=== PATIENT | female | born 1985 | race Caucasian/White ===

== ENCOUNTER 2021-07-21 18:17 | Emergency (ER) | payer OTHER ==
[~2021-07-21] VITALS: Ht 152.4 cm; Wt 68.0 kg
[~2021-07-21 18:17] MED LIST: CIPRO500 MG PO; INTESTINEX680 MG PO; KETO10TA2 PO; TAMS0.4C PO; ZANTAC150 MG PO
== END 2021-07-21 21:11 | disposition home or self-care (01) ==
LOC: ER 18:17
DX: M54.5 Low back pain (principal); Z03.818 Encounter for observation for suspected exposure to other biological agents ruled out

== ENCOUNTER 2022-11-14 12:09 | Emergency (ER) | payer OTHER ==
[~2022-11-14] VITALS: Ht 152.4 cm; Wt 68.0 kg
== END 2022-11-14 18:47 | disposition home or self-care (01) ==
LOC: ER 12:09
DX: K52.89 Other specified noninfective gastroenteritis and colitis (principal)

== ENCOUNTER 2025-03-19 13:16 | Emergency (ER) | payer OTHER ==
[~2025-03-19] VITALS: Ht 152.4 cm; Wt 63.5 kg
[2025-03-19] MEDS ORDERED: KETOROLAC TROMETHAMINE 60 MG VIAL IM ONE ×2 (16:15→16:52)
[2025-03-19] MEDS ORDERED: ORPHENADRINE CITRATE 30 MG/ML AMPUL IM ONE (16:15)
[2025-03-19] MEDS ORDERED: ORPHENADRINE CITRATE 30 MG/ML AMPUL ONE (16:52)
== END 2025-03-19 19:07 | disposition home or self-care (01) ==
LOC: ER 13:16
DX: M54.50 Low back pain, unspecified (principal)

== ENCOUNTER 2025-05-01 10:18 | Emergency (ER) | payer OTHER ==
[~2025-05-01] VITALS: Ht 152.4 cm; Wt 68.0 kg
[2025-05-01] MEDS ORDERED: DUI500 PO (10:59)
[2025-05-01] MEDS ORDERED: DIPHTH,PERTUSS(ACELL),TET VAC 0.5 ML SYRINGE IM ONE ×2 (11:00→11:20)
[2025-05-01] MEDS ORDERED: CEFTRIAXONE SODIUM 1,000 MG VIAL IM ONE (11:00)
[2025-05-01] MEDS ORDERED: CEFTRIAXONE SODIUM 1,000 MG VIAL ONE (11:19)
[2025-05-01] MEDS ORDERED: LIDOCAINE HCL 1% 10ML VIAL ONE (11:19)
== END 2025-05-01 13:37 | disposition home or self-care (01) ==
LOC: ER 10:18
DX: S91.322A Laceration with foreign body, left foot, initial encounter (principal); W45.8XXA Other foreign body or object entering through skin, initial encounter; Y93.89 Activity, other specified; Y92.89 Other specified places as the place of occurrence of the external cause
CPT/HCPCS: 90471; 90714; J1670